=== PATIENT | female | born 1935 | race Caucasian/White ===

== ENCOUNTER 2021-08-06 23:21 | Inpatient (IN) ==
[2021-08-07] MEDS ORDERED: Ondansetron 4 MG/2 ML VIAL IVP PRN (05:06)
[2021-08-07] MEDS ORDERED: Acetaminophen 325 MG TABLET PO PRN (05:06)
[2021-08-07] MEDS ORDERED: Naloxone 0.4 MG/ML INJ IVP PRN (05:06)
[2021-08-07] MEDS ORDERED: *HR* Heparin 5,000 UNIT/ML VIAL IVP PRN ×2 (06:06)
[2021-08-07] MEDS ORDERED: Perflutren Lipid Microsphere 1.3 ML in 0.9 % Sodium Chloride 8.7 ML IVP PRN (06:07)
[2021-08-07 06:19] LABS: Influenza A PCR Negative (Negative); Influenza B PCR Negative (Negative); Resp. Syncytial Virus PCR Negative (Negative)
[2021-08-07] MEDS ORDERED: 0.9 % Sodium Chloride 250 ML IVC ONE (06:24)
[2021-08-07 06:28] LABS: SARS-CoV-2 by PCR (In House) Negative (Negative)
[2021-08-07 06:32] LABS: Basophils % 0.1 %; Hematocrit 36.5 % (35.3-44.9); Hemoglobin 11.3 g/dL (11.5-15.4); Immature Granulocytes % 0.4 % (0-4); Lymphocytes # 0.6 K/mcL (0.6-4.6); Mean Corpuscular Hemoglobin 31.3 pg (28.0-33.3); Mean Corpuscular Volume 101.1 fL (83.0-100.0); Mean Platelet Volume 10.7 fL (9.4-12.4); Monocytes # 0.2 K/mcL (0.0-1.3); Neutrophils # 15.2 K/mcL (1.6-8.9); Platelet Count 338 K/mcL (140-400); Red Blood Count 3.61 M/mcL (3.82-4.97); Red Cell Distribution Width 12.8 % (11.5-14.5); Segmented Neutrophils % 94.5 %; White Blood Count 16.1 K/mcL (4.3-11.1)
[2021-08-07 06:42] LABS: Fibrinogen 433 mg/dL (169-393); Prothrombin Time 11.2 Seconds (9.4-12.1)
[2021-08-07 06:44] LABS: D-Dimer 3651 ng/mLFEU (0-500)
[2021-08-07 06:45] LABS: Calcium 9.2 mg/dL (8.6-10.3); Potassium 4.1 mEq/L (3.5-5.1)
[2021-08-07 06:46] LABS: Lactate Dehydrogenase 260 Units/L (140-271)
[2021-08-07 06:48] LABS: Albumin 4.1 g/dL (3.5-5.7); Albumin/Globulin Ratio 1.4 (1.1-2.2); Bilirubin,Direct 0.1 mg/dL (0.0-0.2); Bilirubin,Indirect 0.4 mg/dL (0.0-1.0); Bilirubin,Total 0.5 mg/dL (0.3-1.0); Chol/HDL Ratio 2.3 (0-4.9); Globulin 2.9 g/dL (2.4-3.5); Magnesium 1.8 mg/dL (1.6-2.6); Phosphorous 2.6 mg/dL (2.7-4.5)
[2021-08-07] MEDS: Heparin 25,000UNIT/250ML 1/2NS 25,000 UNIT/250 ML IV.SOLN IVC SCH (07:18)
[2021-08-07 07:53] LABS: Adenovirus Not Detected (Not Detect); Bordetella Pertussis Not Detected (Not Detect); Chlamydophila pneumoniae Not Detected (Not Detect); Coronavirus 229E Not Detected (Not Detect); Coronavirus HKU1 Not Detected (Not Detect); Coronavirus NL63 Not Detected (Not Detect); Coronavirus OC43 Not Detected (Not Detect); Human Metapneumovirus Not Detected (Not Detect); Human Rhinovirus/Enterovirus DETECTED (Not Detect); Influenza A Subtype 2009 H1 Not Detected (Not Detect); Influenza B Not Detected (Not Detect); Mycoplasma pneumoniae Not Detected (Not Detect); Parainfluenza Virus 1 Not Detected (Not Detect); Parainfluenza Virus 2 Not Detected (Not Detect); Parainfluenza Virus 3 Not Detected (Not Detect); Parainfluenza Virus 4 Not Detected (Not Detect); Respiratory Syncytial Virus Not Detected (Not Detect); SARS-CoV-2 Not Detected (Not Detect)
[2021-08-07] MEDS ORDERED: Ipratropium Neb 0.5 MG NEBULIZER IH PRN (08:10)
[2021-08-07] MEDS ORDERED: cefTRIAXone 1,000 MG in 0.9 % Sodium Chloride Mini Bag 100 ML IVPB SCH (09:00)
[2021-08-07 09:09] LABS: C-Reactive Protein 10 mg/L (Less than 10)
[2021-08-07] MEDS: Levalbuterol Neb 0.63 MG/3 ML IH SCH ×3 (12:07→21:44)
[2021-08-07] MEDS ORDERED: Azithromycin 500 MG in 0.9 % Sodium Chloride 250 ML IVPB SCH (21:00)
[2021-08-08] MEDS: Levalbuterol Neb 0.63 MG/3 ML IH SCH ×4 (04:23→23:48)
[2021-08-08 05:35] LABS: Basophils % 0.1 %; Hematocrit 34.3 % (35.3-44.9); Hemoglobin 10.7 g/dL (11.5-15.4); Immature Granulocytes % 0.7 % (0-4); Lymphocytes # 0.8 K/mcL (0.6-4.6); Lymphocytes % 3.4 %; Mean Corpuscular HGB Conc 31.2 g/dL (31.6-35.5); Mean Corpuscular Hemoglobin 31.8 pg (28.0-33.3); Mean Corpuscular Volume 101.8 fL (83.0-100.0); Mean Platelet Volume 10.5 fL (9.4-12.4); Monocytes # 1.6 K/mcL (0.0-1.3); Monocytes % 6.7 %; Neutrophils # 21.3 K/mcL (1.6-8.9); Platelet Count 296 K/mcL (140-400); Red Blood Count 3.37 M/mcL (3.82-4.97); Red Cell Distribution Width 12.9 % (11.5-14.5); Segmented Neutrophils % 89.1 %; White Blood Count 23.9 K/mcL (4.3-11.1)
[2021-08-08 05:44] LABS: VBG HCO3 26 mEq/L (21-27); VBG PCO2 52 mmHg (41-51); VBG PO2 178 mmHg (25-50)
[2021-08-08 05:55] LABS: BUN/Creatinine Ratio 48 (6-26); Blood Urea Nitrogen 46 mg/dL (8-23); Calcium 8.6 mg/dL (8.6-10.3); Carbon Dioxide 24 mEq/L (23-29); Chloride 109 mEq/L (98-107); Glucose 185 mg/dL (70-105); Magnesium 2.1 mg/dL (1.6-2.6); Osmolality,Calculated 311 (280-300); Phosphorous 4.1 mg/dL (2.7-4.5); Potassium 3.7 mEq/L (3.5-5.1); Sodium 142 mEq/L (136-145); eGFR For African Americans > 60 (> 60); eGFR For Non-African Americans 55 (> 60)
[2021-08-08 05:56] LABS: Platelet Estimate Normal (Normal)
[2021-08-08] MEDS ORDERED: Piperacillin/Tazobactam 3.375 GM in 0.9 % Sodium Chloride Mini Bag 100 ML IVPB SCH (08:00)
[2021-08-08] MEDS: risperiDONE 0.25 MG TABLET PO SCH ×2 (08:04→21:38)
[2021-08-08] MEDS ORDERED: Aspirin 81 MG TAB.CHEW PO SCH (09:00)
[2021-08-08] MEDS: Morphine Sulfate 2 MG/ML SYRINGE IVP PRN ×2 (15:18→17:29)
[2021-08-08] MEDS: Haloperidol Oral Conc 10 MG/5 ML UDC PO SCH ×2 (15:18→21:38)
[2021-08-08] MEDS: Heparin 25,000UNIT/250ML 1/2NS 25,000 UNIT/250 ML IV.SOLN IVC SCH (16:06)
[2021-08-09] MEDS: *HR* LORazepam Oral Conc 2 MG/ML PO PRN ×4 (00:55→17:02)
[2021-08-09] MEDS: Morphine Sulfate 2 MG/ML SYRINGE IVP PRN ×6 (05:00→19:46)
[2021-08-09] MEDS: risperiDONE 0.25 MG TABLET PO SCH ×2 (07:23→19:51)
[2021-08-09] MEDS: Haloperidol Oral Conc 10 MG/5 ML UDC PO SCH (07:23)
[2021-08-09] MEDS: Morphine Sulfate Oral CONC 10 MG/0.5 ML ORAL.SYG SL PRN ×2 (08:00)
[2021-08-09] MEDS ORDERED: Morphine Sulfate Oral CONC 10 MG/0.5 ML ORAL.SYG SL PRN (14:34)
[2021-08-09] MEDS: Haloperidol Lactate 5 MG/ML VIAL IVP PRN ×2 (14:57→19:46)
[2021-08-10] MEDS: Haloperidol Lactate 5 MG/ML VIAL IVP PRN (06:42)
[2021-08-10] MEDS: Morphine Sulfate 2 MG/ML SYRINGE IVP PRN (06:42)
[2021-08-10] MEDS: risperiDONE 0.25 MG TABLET PO SCH (09:40)
[2021-08-10] MEDS ORDERED: Haloperidol Lactate 5 MG/ML VIAL IVP PRN ×2 (10:51→10:53)
[2021-08-10] MEDS ORDERED: Morphine Sulfate 2 MG/ML SYRINGE IVP PRN ×2 (10:53→13:09)
[2021-08-10] MEDS ORDERED: Morphine Sulfate Oral CONC 10 MG/0.5 ML ORAL.SYG SL PRN ×2 (10:53→11:06)
[2021-08-10] MEDS ORDERED: Atropine 1% Opth Drops 100 DROP/5 ML BOTTLE SL PRN (10:54)
[2021-08-10] MEDS: Haloperidol Oral Conc 10 MG/5 ML UDC PO SCH ×3 (11:39→23:38)
[2021-08-10] MEDS: *HR* LORazepam 2 MG/ML VIAL IVP PRN (13:04)
[2021-08-10] MEDS: Morphine Sulfate Oral CONC 10 MG/0.5 ML ORAL.SYG SL PRN (19:20)
[2021-08-11] MEDS: Haloperidol Oral Conc 10 MG/5 ML UDC PO SCH ×3 (05:37→17:09)
[2021-08-11] MEDS: Morphine Sulfate Oral CONC 10 MG/0.5 ML ORAL.SYG SL PRN (07:38)
[2021-08-11] MEDS: *HR* LORazepam 2 MG/ML VIAL IVP PRN (07:38)
[2021-08-11] MEDS ORDERED: Acetaminophen IV 1,000 MG/100 ML BAG IVPB ONE (12:43)
[2021-08-11 19:15] VITALS: BP 174/79; PULSE 105; TEMP 98.4; O2SAT 63
== END 2021-08-12 00:45 | disposition expired | DRG 871 ==
LOC: 2ANU → SUATTDRO 08-07 05:12
PROVIDERS: ADMIT Family Medicine; ATTEND Internal Medicine